=== PATIENT | female | born 1965 | race Caucasian/White ===

== ENCOUNTER 2017-06-07 14:40 | Outpatient (CLI) | payer OTHER ==
[~2017-06-07 14:40] MED LIST: ATOR10TA PO; BIOT0.5P; CALC500T63 PO; CHOL10002 PO; ESTR0.6261 PO; KRIL1CAP2 PO; MULT1TAB74 PO
== END 2017-06-07 23:59 | disposition home or self-care (01) ==
LOC: CARD DIAG 14:40
PROVIDERS: ATTEND Internal Medicine Cardiovascular Disease
DX: I08.3 Combined rheumatic disorders of mitral, aortic and tricuspid valves (principal)
CPT/HCPCS: 93306

== ENCOUNTER 2018-05-22 16:02 | Outpatient (CLI) | payer OTHER | END 2018-05-22 23:59 | disposition home or self-care (01) | LOC: RAD 16:02 | PROVIDERS: ATTEND Internal Medicine | DX: M17.12 Unilateral primary osteoarthritis, left knee (principal); M77.32 Calcaneal spur, left foot; J45.909 Unspecified asthma, uncomplicated; Z90.710 Acquired absence of both cervix and uterus | CPT/HCPCS: 73564 ==

== ENCOUNTER 2021-02-01 15:00 | Outpatient (CLI) | payer BC ==
[~2021-02-01 15:00] MED LIST changes: -KRIL1CAP2 PO; +KRIL1CAP4 PO; +MULT-620 PO; -MULT1TAB74 PO
== END 2021-02-01 23:59 | disposition home or self-care (01) ==
LOC: RAD 15:00
PROVIDERS: ATTEND Internal Medicine
DX: M17.12 Unilateral primary osteoarthritis, left knee (principal); M94.211 Chondromalacia, right shoulder
CPT/HCPCS: 73221; 73564

== ENCOUNTER 2021-02-16 09:42 | Day surgery (SDC) | payer BC ==
[~2021-02-16] VITALS: Ht 167.6 cm; Wt 93.2 kg
[2021-02-16] VITALS (7 sets, daily range): BP systolic 118–140; BP diastolic 70–95
[2021-02-16] MEDS ORDERED: fentaNYL/PF 50MCG/1 ML 2ML syringe ONE (09:55)
[2021-02-16] MEDS ORDERED: LIDOcaine Viscous 15ml cup ONE (09:55)
[2021-02-16] MEDS ORDERED: MIDAZolam 1 MG/ML 5ML VIAL ONE (09:55)
[2021-02-16] MEDS ORDERED: OXYB10TA30 PO (10:27)
[2021-02-16] MEDS ORDERED: METF-516 PO (10:28)
[2021-02-16] MEDS ORDERED: PANT-47 PO (10:29)
== END 2021-02-16 11:28 | disposition home or self-care (01) ==
LOC: GI LAB 09:42
PROVIDERS: ATTEND Internal Medicine Gastroenterology
DX: R13.10 Dysphagia, unspecified (principal); R12 Heartburn; K44.9 Diaphragmatic hernia without obstruction or gangrene; K22.2 Esophageal obstruction; K29.50 Unspecified chronic gastritis without bleeding; K21.9 Gastro-esophageal reflux disease without esophagitis; J45.909 Unspecified asthma, uncomplicated; Z79.899 Other long term (current) drug therapy
CPT/HCPCS: 43239; 43450; 99152; J2250; J3010; J7040; Z7512; 99153; A4620

== ENCOUNTER 2024-01-30 15:52 | Outpatient (CLI) | payer BC ==
[~2024-01-30 15:52] MED LIST changes: -ATOR10TA PO; -CALC500T63 PO; +METF-516 PO; +OXYB10TA30 PO; +PANT-47 PO
== END 2024-01-30 23:59 | disposition home or self-care (01) ==
LOC: VAS 15:52
PROVIDERS: ATTEND Nurse Practitioner Family
DX: I83.892 Varicose veins of left lower extremity with other complications (principal); G43.909 Migraine, unspecified, not intractable, without status migrainosus; I87.2 Venous insufficiency (chronic) (peripheral); L97.929 Non-pressure chronic ulcer of unspecified part of left lower leg with unspecified severity
CPT/HCPCS: 70551; 93971

== ENCOUNTER 2024-07-02 16:33 | Outpatient (CLI) | payer BC | END 2024-07-02 23:59 | disposition home or self-care (01) | LOC: RAD 16:33 | PROVIDERS: ATTEND Nurse Practitioner Family | DX: M17.11 Unilateral primary osteoarthritis, right knee (principal); G89.29 Other chronic pain | CPT/HCPCS: 73564 ==

== ENCOUNTER 2025-01-14 15:03 | Outpatient (CLI) | payer BC ==
--- NOTE | 2025-01-15 10:00 | RADIOLOGY REPORT ---
CLINICAL HISTORY: BILATERAL PRIMARY OSTEOARTHRITIS OF KNEE, PAIN IN R KNEE COMPARISON: Radiographs dated 07/02/2024. TECHNIQUE: Multisequence multiplanar MRI images of the right knee were obtained without contrast. FINDINGS: Cruciate ligaments: ACL and PCL are intact. Extensor mechanism: Quadriceps mechanism and patellar tendon are intact. Collateral ligaments: Medial and lateral collateral ligaments are intact and otherwise unremarkable. Menisci: Prominent intrasubstance signal in the body of the lateral meniscus and extending to the body / anterior horn junction with extension to the tibial articular surface at the periphery of the body/anterior horn junction, suspected longitudinal tear. Medial meniscus is intact. Cartilage: Moderate chondral fissuring / fibrillation in the patella near the median ridge. Chondral fraying and mild fissuring in the lateral compartment involving the weight-bearing zone of the lateral femoral condyle and adjacent portions of the lateral tibial plateau. Chondral thinning with mild fraying and fissuring in the weight-bearing zone of the medial femoral condyle. Bones: No acute fracture or focal marrow contusion. Joint fluid: Small joint effusion. Other: No other significant findings. IMPRESSION: 1. Prominent intrasubstance signal in the body and body / anterior horn junction of the lateral meniscus with suspected extension to the tibial articular surface, possible longitudinal tear. 2. Tricompartmental chondromalacia as described above. 3. Small joint effusion.
--- NOTE | 2025-01-15 10:34 | RADIOLOGY REPORT ---
CLINICAL HISTORY: BILATERAL PRIMARY OSTEOARTHRITIS OF KNEE COMPARISON: MR MRI LOWER EXTREMITY RIGHT on DOS: 01/14/25, DI KNEE, COMP 4 VW MIN on DOS: 07/02/24, KNEE, COMP 4 VW MIN on DOS: 02/01/21 TECHNIQUE: Multisequence multiplanar MRI images of the left knee were obtained without contrast. FINDINGS: Cruciate ligaments: ACL and PCL are intact. Extensor mechanism: Quadriceps mechanism and patellar tendon are intact. Collateral ligaments: Medial and lateral collateral ligaments are intact and otherwise unremarkable. Menisci: Focal blunting of the free edge of the posterior horn/ posterior root junction of the medial meniscus, suspected free edge tear.There is associated extrusion of the body of the medial meniscus beyond the medial tibial margin, abutting and mildly displacing the MCL. Mild blunting of the free edge of the body of the lateral meniscus, may be due to free edge fraying or small free edge tear. Cartilage: Mild chondral fraying and fissuring in the medial and lateral compartments. Moderate chondral fissuring at the median ridge of the patella with mild subchondral cystic change. Bones: No acute fracture or focal marrow contusion. Joint fluid: Small joint effusion. Other: There are varicosities along the lateral aspect of the left knee. IMPRESSION: 1. Suspected free edge tear involving the junction of the posterior horn and posterior root attachment of the medial meniscus with associated extrusion of the body of the medial meniscus. 2. Tricompartmental chondromalacia as described above. 3. Small joint effusion. 4. Additional findings as described above.
== END 2025-01-14 23:59 | disposition home or self-care (01) ==
LOC: MRI 15:03
PROVIDERS: ATTEND Orthopaedic Surgery
DX: M17.0 Bilateral primary osteoarthritis of knee (principal); M25.561 Pain in right knee; M25.462 Effusion, left knee; M94.262 Chondromalacia, left knee; M25.461 Effusion, right knee
CPT/HCPCS: 73721